=== PATIENT | female | born 1995 | race Hispanic/Latino ===

== ENCOUNTER 2019-08-14 21:18 | Inpatient (IN) | payer SELFPAY ==
[~2019-08-14] VITALS: Ht 162.6 cm; Wt 131.2 kg
[2019-08-14] MEDS ORDERED: ONDANSETRON HCL 4 MG/2 ML VIAL ONE (21:36)
[2019-08-14 21:52] LABS: BASOPHILS % (AUTO) 0.3 % (0.0-5.0); EOSINOPHILS % (AUTO) 0.2 % (0.0-8.0); HEMATOCRIT 44.8 % (36-48); MEAN CORPUSCULAR HEMOGLOBIN 30.1 pg (27.0-33.0); MEAN CORPUSCULAR HGB CONC 33.3 g/dL (32.0-36.0); MEAN CORPUSCULAR VOLUME 90.5 fL (79-99); MONOCYTES % (AUTO) 3.2 % (3.0-13.0); NEUTROPHILS % (AUTO) 83.9 % (40.0-77.0); PLATELET COUNT (AUTO) 508 K/uL (130-400); RED BLOOD CELL COUNT(AUTO) 4.95 MIL/uL (4.00-5.50); RED CELL DISTRIBUTION WIDTH 12.9 % (11.0-15.5); WHITE BLOOD COUNT (AUTO) 17.1 K/uL (4.8-10.8)
[2019-08-14 22:02] LABS: CREATININE 0.8 mg/dL (0.5-1.5); POTASSIUM 3.8 mmol/L (3.5-5.1)
[2019-08-14 22:07] LABS: APPEARANCE,URINE Cloudy (CLEAR); BILIRUBIN,URINE Small (NEGATIVE); COLOR,URINE Dark Yellow (YELLOW); GLUCOSE, URINE (UA) Negative (NEGATIVE); KETONES,URINE >=80 mg/dL (NEGATIVE); LEUKOCYTE ESTERASE ,URINE Small (NEGATIVE); NITRATE,URINE Negative (NEGATIVE); OCCULT BLOOD,URINE Negative (NEGATIVE); PH,URINE 8.5 (5.0-8.0); PROTEIN,URINE POS 1+ mg/dL (NEGATIVE)
[2019-08-14 22:08] LABS: ALBUMIN 4.1 g/dL (3.5-5.0); BILIRUBIN,TOTAL 0.6 mg/dL (0.2-1.0); TOTAL PROTEIN, SERUM 8.4 g/dL (6.0-8.3)
[2019-08-14 22:09] LABS: AMORPHOUS SEDIMENT,UR Few /LPF (None Seen); BACTERIA,URINE Moderate /HPF (None Seen); HCG,QUAL RESULT NEGATIVE (NEGATIVE); MUCUS,URINE Many LPF (None Seen); RBC,URINE 0-1 /HPF (0-1); SQUAMOUS EPITHELIAL CELL,UR Many /HPF (0-2)
[2019-08-14] MEDS ORDERED: KETOROLAC TROMETHAMINE 30MG/ML ONE (23:13)
[2019-08-15] MEDS: SODIUM CHLORIDE 0.9% 1000ML 1,000 ML IV SCH ×4 (00:10→21:08)
[2019-08-15] MEDS ORDERED: KETOROLAC TROMETHAMINE 30MG/ML IV PRN (00:15)
[2019-08-15] MEDS ORDERED: MORPHINE SULFATE 2 MG/ML 1ML SYG IV PRN (00:15)
[2019-08-15] MEDS ORDERED: HYDRALAZINE HCL 20 MG/ML VIAL IV PRN (00:15)
[2019-08-15] MEDS ORDERED: ACETAMINOPHEN 325 MG TAB PO PRN ×2 (00:15)
[2019-08-15] MEDS ORDERED: MEPERIDINE HCL/PF 25 MG/0.5 ML AMPUL IM PRN (00:45)
[2019-08-15] MEDS ORDERED: MEPERIDINE-PF 50 MG/ML SYG IVP PRN (00:45)
[2019-08-15 00:52] LABS: CHOLESTEROL 237 mg/dL (<200); LDL DIRECT 148 mg/dL (0-99); TRIGLYCERIDES 194 mg/dL (30-200)
[2019-08-15] MEDS ORDERED: LEVOFLOXACIN 500 MG/D5W 100 ML 100 ML IV SCH (01:00)
[2019-08-15 01:03] LABS: HDL CHOLESTEROL 60 mg/dL (35-85)
[2019-08-15] MEDS ORDERED: ZOSYN 3.375GM+NS 50ML 50 ML IV ONE (01:29)
[2019-08-15] MEDS ORDERED: SODIUM CHLORIDE 0.9% 1000ML 1,000 ML IV ONE (01:30)
[2019-08-15 01:33] LABS: HEMOGLOBIN A1C 5.8 % (4.0-6.0)
[2019-08-15 02:31] VITALS: BP 141/87
[2019-08-15] MEDS ORDERED: METRONIDAZOLE 500MG/100ML BAG 100 ML IV SCH (06:00)
--- NOTE | 2019-08-15 07:20 | NUR ---
RECEIVED REPORT FROM ROCKY ROUSE
--- NOTE | 2019-08-15 07:30 | NUR ---
ASSESSMENT PT IS AAOX3 DENIES CP DENIES SOB DENIES NV NO COMPLAINTS RESTING IN BED. DENIES NV DENIES ABD PAIN. NPO STATUS. CALL LIGHT WITHIN REACH.
[2019-08-15] MEDS: ZOSYN 3.375GM+NS 50ML 50 ML IV SCH ×2 (07:58→16:14)
[2019-08-15] MEDS: FAMOTIDINE/PF 20 MG/2 ML VIAL IV SCH ×2 (07:59→21:09)
--- NOTE | 2019-08-15 08:00 | NUR ---
GEN SURGERY CONSULT PLACED WITH DR PARRA. WILL COME SEE PATIENT.
[2019-08-15 08:09] VITALS: BP 134/57
[2019-08-15] MEDS: KETOROLAC TROMETHAMINE 30MG/ML IV PRN (09:59)
[2019-08-15] MEDS: ONDANSETRON HCL 4 MG/2 ML VIAL IV PRN (09:59)
[2019-08-15 12:02] VITALS: BP 122/70
--- NOTE | 2019-08-15 12:30 | NUR ---
DR PARRA ROUNDED SAW PATIENT. NO SURGERY FOR TODAY, POSSIBLE LAP KIMMY VS OPEN KIMMY WED 08-18-19
--- NOTE | 2019-08-15 14:39 | NUR ---
GI CONSULT DR BINGHAM MADE AWARE OF CONSULT. ORDERS RECEIVED, PLACED IN CPOE.
--- NOTE | 2019-08-15 15:38 | NUR ---
DOWN TO RADIOLOGY VIA WC WITH RAD STAFF FOR [facility]
[2019-08-15 15:43] VITALS: BP 118/68
--- NOTE | 2019-08-15 16:22 | NUR ---
RETURNED FROM [facility] BACK TO BED NO COMPLAINTS. DENIES PAIN, DENIES NV.
--- NOTE | 2019-08-15 16:36 | NUR ---
INITIAL: Met with pt and family this afternoon to discuss dcp. Pt mentions that she lives w her parents. Prior to admission was independent w ambulation and ADLs. She does not own any DME and was not receiving services prior to admission. 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 Pt mentions that she feels safe and comfortable to [place]. CM to continue to follow and wait for Md recommendations. Addendum: 08/15/19 at 1639 by DENNIS GELLER CM Amended: Links added. Addendum: 08/15/19 at 1719 by DENNIS GELLER Low income packet provided to pt.
--- NOTE | 2019-08-15 18:10 | NUR ---
PENDING [facility] RESULTS PT REMAINS AAOX3 DENIES CP DENIES SOB DENIES NV DENIES ABD PAIN. NO COMPLAINTS. CALL LIGHT WITHIN REACH.
--- NOTE | 2019-08-15 19:10 | NUR ---
TRANSFER TO 3RD FLOOR ROOM 324 PT IS AAOX3, ALL BELONGINGS TAKEN WITH PATIENT. TELE PACK REMOVED. REPORT GIVEN TO DESMOND ROUSE.
[2019-08-15 19:39] VITALS: BP 117/68
[2019-08-16] VITALS: BP 129/69
[2019-08-16] MEDS: ZOSYN 3.375GM+NS 50ML 50 ML IV SCH ×3 (01:00→17:26)
[2019-08-16] MEDS ORDERED: SODIUM CHLORIDE 0.9% 250 ML IV ONE (01:03)
[2019-08-16 04:00] VITALS: BP 103/51
[2019-08-16 05:11] LABS: BASOPHILS % (AUTO) 0.3 % (0.0-5.0); EOSINOPHILS % (AUTO) 1.3 % (0.0-8.0); HEMATOCRIT 37.6 % (36-48); LYMPHOCYTES % (AUTO) 28.6 % (21.0-51.0); MEAN CORPUSCULAR HEMOGLOBIN 29.8 pg (27.0-33.0); MEAN CORPUSCULAR HGB CONC 31.9 g/dL (32.0-36.0); MEAN CORPUSCULAR VOLUME 93.3 fL (79-99); MONOCYTES % (AUTO) 7.3 % (3.0-13.0); NEUTROPHILS % (AUTO) 62.2 % (40.0-77.0); PLATELET COUNT (AUTO) 366 K/uL (130-400); RED BLOOD CELL COUNT(AUTO) 4.03 MIL/uL (4.00-5.50); WHITE BLOOD COUNT (AUTO) 11.1 K/uL (4.8-10.8)
[2019-08-16 05:40] LABS: BILIRUBIN,TOTAL 0.5 mg/dL (0.2-1.0); CREATININE 0.9 mg/dL (0.5-1.5); MAGNESIUM 2.9 mg/dL (1.80-2.40); POTASSIUM 3.9 mmol/L (3.5-5.1); TOTAL PROTEIN, SERUM 6.4 g/dL (6.0-8.3)
[2019-08-16] MEDS: SODIUM CHLORIDE 0.9% 1000ML 1,000 ML IV SCH ×3 (06:48→21:20)
[2019-08-16 08:00] VITALS: BP 111/66
[2019-08-16] MEDS: FAMOTIDINE/PF 20 MG/2 ML VIAL IV SCH ×2 (08:52→21:16)
[2019-08-16 11:40] VITALS: BP 116/67
[2019-08-16 16:00] VITALS: BP 122/70
[2019-08-16 19:53] VITALS: BP 110/51
[2019-08-17] VITALS: BP 121/56
[2019-08-17] MEDS: ONDANSETRON HCL 4 MG/2 ML VIAL IV PRN (00:47)
[2019-08-17] MEDS: KETOROLAC TROMETHAMINE 30MG/ML IV PRN (00:47)
[2019-08-17] MEDS: ZOSYN 3.375GM+NS 50ML 50 ML IV SCH ×3 (00:47→16:50)
[2019-08-17 04:00] VITALS: BP 107/65
[2019-08-17] MEDS: SODIUM CHLORIDE 0.9% 1000ML 1,000 ML IV SCH ×4 (04:00→17:20)
[2019-08-17 05:34] LABS: BASOPHILS % (AUTO) 0.3 % (0.0-5.0); HEMATOCRIT 36.5 % (36-48); LYMPHOCYTES % (AUTO) 38.3 % (21.0-51.0); MEAN CORPUSCULAR HEMOGLOBIN 29.6 pg (27.0-33.0); MEAN CORPUSCULAR HGB CONC 31.8 g/dL (32.0-36.0); MEAN CORPUSCULAR VOLUME 93.1 fL (79-99); MONOCYTES % (AUTO) 7.4 % (3.0-13.0); NEUTROPHILS % (AUTO) 51.6 % (40.0-77.0); PLATELET COUNT (AUTO) 371 K/uL (130-400); RED BLOOD CELL COUNT(AUTO) 3.92 MIL/uL (4.00-5.50); RED CELL DISTRIBUTION WIDTH 12.9 % (11.0-15.5); WHITE BLOOD COUNT (AUTO) 10.6 K/uL (4.8-10.8)
[2019-08-17 06:05] LABS: ALBUMIN 2.9 g/dL (3.5-5.0); BILIRUBIN,TOTAL 0.8 mg/dL (0.2-1.0); CREATININE 0.9 mg/dL (0.5-1.5); POTASSIUM 3.4 mmol/L (3.5-5.1); TOTAL PROTEIN, SERUM 6.5 g/dL (6.0-8.3)
[2019-08-17 08:00] VITALS: BP 105/50
[2019-08-17] MEDS: FAMOTIDINE/PF 20 MG/2 ML VIAL IV SCH ×2 (09:20→21:29)
[2019-08-17 11:57] VITALS: BP 114/59
[2019-08-17 15:38] VITALS: BP 116/68
[2019-08-17 19:48] VITALS: BP 107/64
[2019-08-18] VITALS (22 sets, daily range): BP systolic 113–156; BP diastolic 57–102
[2019-08-18] MEDS: ZOSYN 3.375GM+NS 50ML 50 ML IV SCH ×4 (00:13→23:52)
[2019-08-18 05:21] LABS: BASOPHILS % (AUTO) 0.4 % (0.0-5.0); EOSINOPHILS % (AUTO) 1.3 % (0.0-8.0); HEMATOCRIT 36.7 % (36-48); LYMPHOCYTES % (AUTO) 36.6 % (21.0-51.0); MEAN CORPUSCULAR HEMOGLOBIN 29.8 pg (27.0-33.0); MEAN CORPUSCULAR HGB CONC 32.7 g/dL (32.0-36.0); MEAN CORPUSCULAR VOLUME 91.1 fL (79-99); MONOCYTES % (AUTO) 5.9 % (3.0-13.0); NEUTROPHILS % (AUTO) 55.5 % (40.0-77.0); PLATELET COUNT (AUTO) 386 K/uL (130-400); RED BLOOD CELL COUNT(AUTO) 4.03 MIL/uL (4.00-5.50); RED CELL DISTRIBUTION WIDTH 12.8 % (11.0-15.5); WHITE BLOOD COUNT (AUTO) 8.9 K/uL (4.8-10.8)
[2019-08-18 05:30] LABS: ALBUMIN 2.9 g/dL (3.5-5.0); BILIRUBIN,TOTAL 0.6 mg/dL (0.2-1.0); CREATININE 0.7 mg/dL (0.5-1.5); POTASSIUM 3.8 mmol/L (3.5-5.1); TOTAL PROTEIN, SERUM 6.6 g/dL (6.0-8.3)
[2019-08-18] MEDS: SODIUM CHLORIDE 0.9% 1000ML 1,000 ML IV SCH ×3 (06:40→19:38)
[2019-08-18] MEDS ORDERED: LACTATED RINGERS 1000ML 1,000 ML IV ONE (08:44)
[2019-08-18] MEDS ORDERED: BUPIVACAINE/PF 0.5% 30ML VIAL ONE (08:48)
[2019-08-18] MEDS ORDERED: LIDOCAINE HCL-MPF 1% 5ML AMP IJ ONE (08:58)
[2019-08-18] MEDS ORDERED: SUCCINYLCHOLINE 200MG/10ML SYR ONE (08:58)
[2019-08-18] MEDS ORDERED: FENTANYL CITRATE PF 50 MCG/1 ML 2ML VIAL ONE (08:59)
[2019-08-18] MEDS ORDERED: ROCURONIUM 10MG/1ML SYR 10 MG/ML ML ONE (08:59)
[2019-08-18] MEDS ORDERED: PROPOFOL 10 MG/ML 20ML VIAL IV ONE (08:59)
[2019-08-18] MEDS ORDERED: MIDAZOLAM HCL 1 MG/ML 2ML VIAL ONE (09:00)
[2019-08-18] MEDS ORDERED: DEXTROSE 5%-WATER 1,000 ML IV SCH (09:43)
[2019-08-18] MEDS ORDERED: ACETAMINOPHEN 325 MG TAB PO PRN (09:45)
[2019-08-18] MEDS ORDERED: HYDROCODONE/ACETAMINOPHEN 5/325 MG TAB PO PRN (09:45)
[2019-08-18] MEDS ORDERED: ONDANSETRON HCL 4 MG/2 ML VIAL IVP PRN (09:45)
[2019-08-18] MEDS ORDERED: NEOSTIGMINE 5MG/5ML SYR IV ONE (10:26)
[2019-08-18] MEDS ORDERED: GLYCOPYRROLATE 1 MG/5 ML SYRINGE ONE (10:26)
[2019-08-18] MEDS ORDERED: ONDANSETRON HCL 4 MG/2 ML VIAL ONE (10:27)
[2019-08-18] MEDS ORDERED: MEPERIDINE-PF 25 MG/ML SYG ONE ×4 (10:27→11:18)
[2019-08-18] MEDS ORDERED: KETOROLAC TROMETHAMINE 30MG/ML ONE (10:29)
[2019-08-18] MEDS: ONDANSETRON HCL 4 MG/2 ML VIAL IV PRN (11:29)
[2019-08-18] MEDS: FAMOTIDINE/PF 20 MG/2 ML VIAL IV SCH ×3 (12:30→19:36)
[2019-08-18] MEDS: MORPHINE SULFATE 4 MG/1ML SYG IV PRN (13:02)
[2019-08-19] VITALS: BP 137/68
[2019-08-19] MEDS: ONDANSETRON HCL 4 MG/2 ML VIAL IV PRN (01:34)
[2019-08-19] MEDS: SODIUM CHLORIDE 0.9% 1000ML 1,000 ML IV SCH (02:40)
[2019-08-19 04:00] VITALS: BP 125/71
[2019-08-19 05:33] LABS: BASOPHILS % (AUTO) 0.2 % (0.0-5.0); EOSINOPHILS % (AUTO) 0.5 % (0.0-8.0); LYMPHOCYTES % (AUTO) 20.9 % (21.0-51.0); MEAN CORPUSCULAR HEMOGLOBIN 29.6 pg (27.0-33.0); MEAN CORPUSCULAR HGB CONC 32.4 g/dL (32.0-36.0); MEAN CORPUSCULAR VOLUME 91.4 fL (79-99); MONOCYTES % (AUTO) 5.9 % (3.0-13.0); NEUTROPHILS % (AUTO) 72.1 % (40.0-77.0); PLATELET COUNT (AUTO) 370 K/uL (130-400); RED BLOOD CELL COUNT(AUTO) 3.72 MIL/uL (4.00-5.50); RED CELL DISTRIBUTION WIDTH 12.8 % (11.0-15.5); WHITE BLOOD COUNT (AUTO) 13.3 K/uL (4.8-10.8)
[2019-08-19 05:59] LABS: ALBUMIN 2.8 g/dL (3.5-5.0); BILIRUBIN,DIRECT 0.2 mg/dL (0.0-0.3); BILIRUBIN,TOTAL 0.8 mg/dL (0.2-1.0); CREATININE 0.7 mg/dL (0.5-1.5); POTASSIUM 3.3 mmol/L (3.5-5.1); TOTAL PROTEIN, SERUM 6.5 g/dL (6.0-8.3)
[2019-08-19 07:00] VITALS: BP 136/71
[2019-08-19] MEDS: MORPHINE SULFATE 4 MG/1ML SYG IV PRN (08:37)
[2019-08-19] MEDS: ZOSYN 3.375GM+NS 50ML 50 ML IV SCH (08:38)
[2019-08-19] MEDS: FAMOTIDINE/PF 20 MG/2 ML VIAL IV SCH ×2 (08:38→09:19)
[2019-08-19] MEDS ORDERED: METR-172 PO (11:41)
[2019-08-19] MEDS ORDERED: CEPH500B PO (11:41)
[2019-08-19] MEDS ORDERED: ACET1TAB12 PO (11:41)
[2019-08-19] MEDS ORDERED: IBUP-2077 PO (11:41)
== END 2019-08-19 13:00 | disposition home or self-care (01) | DRG 417 ==
LOC: EDH 21:18 → UNDOADMIN 21:19 → EDHIP 21:19 → 2AH 08-15 02:39 → 3DH 08-15 19:22
PROVIDERS: ADMIT Hospitalist; ATTEND Hospitalist
PROC: 0FT44ZZ Resection of Gallbladder, Percutaneous Endoscopic Approach (ICD-10-PCS; principal; 2019-08-18 09:36)
DX: K80.00 Calculus of gallbladder with acute cholecystitis without obstruction (principal); K85.90 Acute pancreatitis without necrosis or infection, unspecified; Z68.42 Body mass index [BMI] 45.0-49.9, adult; N39.0 Urinary tract infection, site not specified; K76.0 Fatty (change of) liver, not elsewhere classified; E66.01 Morbid (severe) obesity due to excess calories; I10 Essential (primary) hypertension; K37 Unspecified appendicitis; R16.0 Hepatomegaly, not elsewhere classified; R74.0 Nonspecific elevation of levels of transaminase and lactic acid dehydrogenase [LDH]; Z79.899 Other long term (current) drug therapy
CPT/HCPCS: 36415; 74176; 74181; 76705; 80048; 80053; 80061; 80076; 81001; 81025; 82150; 83036; 83690; 83735; 85025; 88305; G0378; J0330; J1885; J2175; J2250; J2270; J2405; J2543; J2704; J2710; J3010; J3490; J7030; J7120

== ENCOUNTER 2021-02-17 18:31 | Emergency (ER) | payer SELFPAY ==
[~2021-02-17] VITALS: Ht 162.6 cm; Wt 149.7 kg
[~2021-02-17 18:31] MED LIST: ACET1TAB12 PO; CEPH500B PO; IBUP-2077 PO; METR-172 PO
[2021-02-17 18:32] VITALS: BP 145/96
== END 2021-02-17 21:27 | disposition left against medical advice (07) ==
LOC: EDH 18:31
DX: H92.02 Otalgia, left ear (principal); Z53.21 Procedure and treatment not carried out due to patient leaving prior to being seen by health care provider